=== PATIENT | female | born 1935 | race Caucasian/White ===

== ENCOUNTER → 2016-07-27 | Outpatient (CLI) | payer MEDICARE, OTHER ==
[~2016-07-27] MED LIST: ASCO500T20 PO; CYAN1TAB26 PO; HCT25T PO; LEVO88TA4 PO; MULT-35 PO; NF-ALLE180 PO; OMG1KC PO; ROSU5TAB PO; [UNRECOGNIZED DRUG - OTHER]
--- NOTE | 2016-07-27 20:09 | Diagnostic Imaging Report ---
INDICATION: Prior history of breast carcinoma in 1992. EXAMINATION: Bilateral screening mammogram, 07/27/2016. COMPARISON: 07/23/15, 07/17/14, 07/17/2013. The current study was also evaluated with a Computer Aided Detection (CAD) system. FINDINGS: The breasts are composed of heterogeneously dense tissues. Deformity of the left breast is noted consistent with previous surgical changes. There are several rounded nodularities in the right breast which are stable. Calcifications on the left unchanged. No new suspicious microcalcifications or dominant masses appreciated. IMPRESSION: 1. Stable appearance of the breasts with no mammographic evidence for malignancy at this time. ACR BI-RADS Category 2: Benign findings. Result letter will be mailed to the patient. Note: At least 10% of breast cancer is not imaged by mammography. Dictated by: Dictated on workstation # [id number]
== END ==
LOC: RAD 12:49
PROVIDERS: ATTEND Family Medicine
DX: Z12.31 Encounter for screening mammogram for malignant neoplasm of breast (principal)